=== PATIENT | female | born 1990 | race Two or more races ===

== ENCOUNTER 2025-03-22 17:34 | Emergency (ER) | payer MEDICAID, SELFPAY ==
[2025-03-22 17:35] VITALS: BP 134/81; PULSE 118; RESP 17; TEMP 36.9; O2SAT 95
--- NOTE | 2025-03-22 17:44 | EDNOTE_ITS ---
<Statement entered by Marquita Ashley MD - 03/24/25 18:54> As co-signing physician, I was present and available for consult prn. I concur with the plan and care as documented by the midlevel provider. ED Medical Clearance RME/HPI General Stated complaint: MEDICAL CLEARANCE Time Seen by Provider: 03/22/25 17:38 Arrival date/time: 03/22/25 17:34 RME / HPI RME / HPI Narrative: 34-year-old female patient was brought in by law enforcement for medical clearance. Patient claims that she is having seizure while inside her car, the police told me that she did not notice any active seizure. Patient did not lost any consciousness patient was not confused. On my initial evaluation patient is alert and oriented, only complains of headache. Denies any other complaints patient is ambulatory patient told me that she recently taking seizure medication that she cannot told me the name. No urinary incontinence, no injury to the tongue. Related Information Home Medications ?Medication ?Instructions ?Recorded ?Confirmed albuterol sulfate 90 mcg/actuation 2 puff inhalation Q 6HR PRN 10/09/17 aerosol inhaler (Proventil HFA) SHORTNESS OF BREATH #0 inhalations beclomethasone dipropionate 80 1 puff inhalation BID # 0 puffs 10/09/17 mcg/actuation aerosol inhaler (Qvar) metoprolol tartrate 100 mg tablet 100 mg PO BID #0 tab s 10/09/17 montelukast 10 mg tablet 10 mg PO HS #0 tabs 10/09/17 (Singulair) Previous Rx's ?Medication ?Instructions ?Recorded Promethazine Hcl/Dextromethorphan 1 tsp PO Q4-6HRPRN P RN COUGH #120 09/07/17 SYRUP * (PHENERGAN DM SYRUP *) mL loratadine 10 mg tablet (Claritin) 1 tab PO QDAY Aller gies #30 tabs 09/07/17 tramadol 50 mg tablet (Ultram) 1 - 2 tab PO Q6HR PRN s evere pain 10/10/17 #20 tabs Allergies Allergy/AdvReac Type Severity Reaction Status Date / Time iodine Allergy Mild Verified 10/09/17 16:54 levofloxacin Allergy Mild Verified 10/09/17 16:54 povidone-iodine Allergy Mild Verified 10/09/17 16:54 soap Allergy Mild Verified 10/09/17 16:54 influenza virus vacc tvs Allergy Unknown Verified 10/09/17 16:54 2012-(19yr,up) cell ray Review of Systems Review of Systems Narrative Review of Systems: Review of system reviewed and within normal limits except mentioned in HPI ED Exam Narrative Physical exam: VITAL SIGNS: Reviewed. GENERAL APPEARANCE: Alert and interactive, follows commands, no acute distress, HEAD AND FACE: Non-traumatic. ENT: PERRL, pink conjunctivitis, eyelid no trauma, Mucous membrane moist. NECK: Supple, nontender, no nuchal rigidity. CHEST: No tenderness, no crepitus, no paradoxical movement, no retractions. LUNGS: Clear, well ventilated, symmetric, no rales, no wheezing, no ronchi, no stridor, good breath sounds bilaterally. HEART: Regular rate, regular rhythm, no murmur, no gallops. ABDOMEN: Soft, positive bowel sounds, nondistended, no guarding, nontender, no rebound, no masses, RECTAL: Deferred. GENITAL: Deferred. NEUROLOGICAL: Gross motor function intact sensory function intact, Appropriate for age. MUSCULOSKELETAL: low back nontender, full range of motion. EXTREMITIES: Nontender, full range of motion. SKIN: Color pink, dry, no rash, no lacerations, no abrasions, no contusions. LYMPHATICS: Deferred. Course Quality Measures none Orders Category Date Time Status Acetaminophen Tab [Tylenol ES Tab] Med 03/22/25 17:45 Discontinued 1,000 mg PO X1 ONE Vital Signs Vital signs: Vital Signs Temperature 98.4 F 03/22/25 17:35 Pulse Rate 118 H 03/22/25 17:35 Respiratory Rate 17 03/22/25 17:35 Blood Pressure 134/81 H 03/22/25 17:35 Pulse Oximetry (%) 95 03/22/25 17:35 Oxygen Delivery Method Room Air 03/22/25 17:35 Medical Clearance MDM Narrative MDM Narrative:: 34-year-old female patient was brought in by law enforcement for medical clearance. Patient claims that she is having seizure while inside her car, the police told me that she did not notice any active seizure. Patient did not lost any consciousness patient was not confused. On my initial evaluation patient is alert and oriented, only complains of headache. Denies any other complaints patient is ambulatory patient told me that she recently taking seizure medication that she cannot told me the name. No urinary incontinence, no injury to the tongue. Patient's vital signs are normal in the emergency room radiated twice. There is no recurrence of presumed seizure in the ED. Patient was noted to be alert and oriented x 4. Patient is medically cleared for incarceration Patient data External records reviewed:: None Clinical information provided by:: patient Social determinants that could affect healthcare access:: none Patient has the following chronic illnesses:: None How is presenting disease/condition affected by chronic disease/condition?: caused by Evaluation data The following diagnostics were reviewed and interpreted by me:: other (specify) (None) Lab and/or radiology exams considered but not ordered:: None Interpretation Summary: None Medications / Prescriptions Medications or Prescriptions considered but not ordered:: None Medication administrations:: Medication Administration History Discontinued Medications Acetaminophen (Acetaminophen 500 Mg Tablet) 1,000 mg PO X1 ONE Stop: 03/22/25 17:46 Tylenol Consultations Consultation(s) initiated? (list below): No Diagnosis Medical Clearance Differential Diagnosis: other (Medical clearance for incarceration) Most likely diagnosis given after review of the tests above:: Medical clearance for incarceration Admission Indicated Admission indicated?: not indicated Admission Request Was there a request for admission?: No Disposition Plan Disposition Plan: Discharge Discharge Attestation Discharge Attestation: Patient condition: Stable Discharge Plan Plan Patient Disposition: HOME (Self Care) Discharge Disposition comment: Stable Prescriptions/Referrals Prescriptions/Med Rec: No Action loratadine [Claritin] 10 MG tablet 1 tab PO QDAY Qty: 30 0RF Promethazine Hcl/Dextromethorphan SYRUP * (PHENERGAN DM SYRUP *) 473 ML syrup 1 tsp PO Q4-6HRPRN PRN (Reason: COUGH) Qty: 120 0RF metoprolol tartrate 100 MG tablet 100 mg PO BID Qty: 0 beclomethasone dipropionate [Qvar] 7.3 GM aerosol 1 puff Inhalation BID Qty: 0 montelukast [Singulair] 10 MG tablet 10 mg PO HS Qty: 0 albuterol sulfate [Proventil HFA] 6.7 GM HFA aerosol inhaler 2 puff Inhalation Q6HR PRN (Reason: SHORTNESS OF BREATH) Qty: 0 tramadol [Ultram] 50 MG tablet 1 - 2 tab PO Q6HR PRN (Reason: severe pain) Qty: 20 0RF Rx Instructions: FOR PAIN, NOT TO EXCEED 8 TABS IN 24 HRS Referrals: No Primary/Family,Physician [Primary Care Provider] - In 1 week Problem List Clinical Impression: Medical clearance for incarceration Patient/Caregiver Discharge Instructions Discharge Activity: activity as tolerated Education Materials: Reducing Your Health Risks ... Additional Instructions: Thank you for the opportunity for serving you today. You are stable for discharged . You are advised to: Follow-up with your PCP in 1 to 2 days Return to ED for worsening of symptoms Increase oral fluids Take your seizure medication as instructed by your PCP Print Language: [place] Stand Alone Forms: Karishma Award Info., Patient Portal Info Letter PA/CHRISTY Supervising Physician PA/CHRISTY Supervising Physician: Md Gabi
[2025-03-22 19:00] VITALS: BP 112/80; PULSE 114; RESP 18; O2SAT 97
[2025-03-22 19:14] VITALS: BMI 34.9
== END 2025-03-22 19:21 ==
PROVIDERS: Emergency Provider Emergency Medicine
DX: Z02.89 Encounter for other administrative examinations (principal); R51.9 Headache, unspecified
CPT/HCPCS: 99283